=== PATIENT | female | born 1965 | race Caucasian/White ===

== ENCOUNTER 2016-10-27 10:47 | Emergency (ER) | payer OTHER ==
[~2016-10-27] VITALS: Ht 160 cm; Wt 86.2 kg
[2016-10-27 10:58] VITALS: BP 105/68
== END 2016-10-27 11:53 | disposition home or self-care (01) ==
LOC: ER 10:47
DX: T63.424A Toxic effect of venom of ants, undetermined, initial encounter (principal); Z88.8 Allergy status to other drugs, medicaments and biological substances; Y93.89 Activity, other specified; Y99.0 Civilian activity done for income or pay; Y92.69 Other specified industrial and construction area as the place of occurrence of the external cause